=== PATIENT | female | born 1935 | race Caucasian/White ===

== ENCOUNTER 2022-10-14 22:39 | Emergency (ER) | payer MEDICARE ==
[~2022-10-14] VITALS: Ht 162.5 cm; Wt 56.7 kg
[~2022-10-14 22:39] MED LIST: ANTIVERT25 MG PO; ASPIRIN81 M1 PO; B12,B-12,B 12500 MC1 PO; B121000 MCG/1 IM; CIPRO500 MG PO; LISINOPRIL10 MG PO; MULTI VITAMINS1 TAB PO
[2022-10-14 23:43] VITALS: BP 128/58
== END 2022-10-15 02:38 | disposition admitted as inpatient to this hospital (09) ==
LOC: ED 22:39
DX: S96.912A Strain of unspecified muscle and tendon at ankle and foot level, left foot, initial encounter (principal); S86.912A Strain of unspecified muscle(s) and tendon(s) at lower leg level, left leg, initial encounter; S70.02XA Contusion of left hip, initial encounter; Z86.718 Personal history of other venous thrombosis and embolism; I10 Essential (primary) hypertension; Z88.1 Allergy status to other antibiotic agents; Z88.5 Allergy status to narcotic agent; Z90.710 Acquired absence of both cervix and uterus; Z90.89 Acquired absence of other organs; Z98.890 Other specified postprocedural states; W18.09XA Striking against other object with subsequent fall, initial encounter; Y93.89 Activity, other specified; Y92.89 Other specified places as the place of occurrence of the external cause; Y99.8 Other external cause status